=== PATIENT | female | born 1975 | race Caucasian/White ===

== ENCOUNTER 2023-09-22 19:30 | Emergency (ER) | payer BC, MEDICAID ==
[~2023-09-22] VITALS: Ht 167.6 cm; Wt 79.5 kg
[2023-09-22 19:33] VITALS: BP 143/92; PULSE 106; RESP 18; TEMP 98.5; O2SAT 97
[2023-09-22 20:04] LABS: BILIRUBIN,URINE NEGATIVE (Neg); CLARITY,URINE SLIGHTLY CLOUDY (Clear); COLOR,URINE YELLOW (Yellow); GLUCOSE, URINE NEGATIVE (Neg); KETONES,URINE TRACE mg/dl (Neg); LEUKOCYTE ESTERASE ,URINE NEGATIVE (Neg); NITRITES, URINE NEGATIVE (Neg); OCCULT BLOOD,URINE NEGATIVE (Neg); PH,URINE 6.5 (4.8-8.0); PROTEIN,URINE NEGATIVE (Neg)
[2023-09-22 20:13] LABS: UA COLLECTION TYPE CLN CATCH MIDSTREAM
[2023-09-22 20:14] LABS: SQUAMOUS EPITHELIAL CELL,UR MANY /LPF (FEW)
[2023-09-22 20:15] LABS: BACTERIA,URINE 2+ /HPF (Neg); RBC,URINE NONE SEEN /HPF (0-2); WBC,URINE 0-4 /HPF (0-4)
[2023-09-22 20:16] LABS: CAL OXALATE CRYSTALS FEW /HPF (NEGATIVE)
[2023-09-22] MEDS ORDERED: CEPH250T PO (20:42)
== END 2023-09-22 21:05 | disposition home or self-care (01) ==
LOC: ER 19:32
DX: N39.0 Urinary tract infection, site not specified (principal); F41.9 Anxiety disorder, unspecified; F32.A Depression, unspecified; Z88.8 Allergy status to other drugs, medicaments and biological substances; Z79.2 Long term (current) use of antibiotics
CPT/HCPCS: 81001; 99283

== ENCOUNTER 2025-01-09 06:13 | Emergency (ER) | payer BC ==
[~2025-01-09] VITALS: Ht 170.2 cm; Wt 80.1 kg
[2025-01-09 06:15] VITALS: TEMP 97.1
[2025-01-09 06:51] LABS: MEAN PLATELET VOLUME 8.1 FL (7.4-10.4); RED CELL DISTRIBUTION WIDTH 14.1 % (11.5-14.5)
[2025-01-09 07:07] LABS: CREATININE 1.05 MG/DL (0.40-0.90); TOTAL CARBON DIOXIDE 30.6 MMOL/L (24-32); eCRCL 64 ML/MIN; eGFR 56 ML/MIN
[2025-01-09 07:11] LABS: URINE HCG NEGATIVE (NEG)
[2025-01-09 07:13] LABS: LEUKOCYTE ESTERASE ,URINE NEGATIVE (Neg); NITRITES, URINE NEGATIVE (Neg); OCCULT BLOOD,URINE NEGATIVE (Neg)
[2025-01-09 07:16] LABS: UA COLLECTION TYPE CLN CATCH MIDSTREAM
--- NOTE | 2025-01-09 07:19 | Physician Documentation ---
History of Present Illness Chief Complaint: Abdominal Pain Stated Complaint: ABDOMINAL PAIN Time Seen by MD: 06:30 OK to notify your PCP?: Yes Primary Medical Doctor: MARIO Source: patient Mode of Arrival: POV Exam Limitations: no limitations HPI Chief Complaint: Abdominal pain Caveat: None Independent Historians: History of Present Illness: Patient is a 49-year-old woman who comes in complaining of lower suprapubic abdominal pain. Patient has had problems with the abdominal pain similar to this for three years at least. Patient states that her pain has gotten worse over the last three weeks. The pain has been constant, described as a dull ache. Pain is currently 4/10. Patient's pain was severe last night and kept her up from sleep. Patient took an ibuprofen earlier this morning prior to arrival which has helped. Patient has not had any nausea vomiting or diarrhea. Patient did see her primary care doctor one week ago when she was working her up for possible allergies. Patient had a endoscopy and colonoscopy at least three years ago. 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 Patient denies any blood in the urine or blood in the stool. No burning with urination. No fever. Patient denies any other a ssociated symptoms. Review of systems: All systems were reviewed and are negative except for what is indicated in the history of present illness. Past Medical History: None Past Surgical History: None Social History: No tobacco use, no alcohol use, no drug use Medications: Reviewed as documented Nursing Notes Allergies: Reviewed as documented in Nursing Notes Medication Reconciliation Allergies: Coded Allergies: nirmatrelvir (Verified Allergy, Unknown, 01/09/25) ritonavir (Verified Allergy, Unknown, 01/09/25) tetracycline (Verified Allergy, Unknown, HIVES, 01/09/25) Past Medical History Past Medical History: UTI, Anxiety, Depression Past Surgical History: no surgical history Alcohol Use: Occasionally Drug Use: none Lives with: Spouse Lives In: Home Occupation: unemployed Review of Systems All Other Systems at this time: Reviewed and Negative ROS Patient denies any other acute symptoms other than above. All other systems are negative Physical Exam Vital Signs: RN Vital Signs have been reviewed: Yes, Temperature: 97.1, Source: Temporal, Heart Rate: 88, Respiratory Rate: 12, BP: 117/80, Pulse Oximetry: 99, Weight: 80.100 Oxygen Flow Rate: 0 Pulse Oximetry Reflects: adequate oxygenation Physical Exam General Appearance: No distress HEENT: Normal OP, moist oral mucosa, PERRL, EOMI Neck: supple, normal ROM, trachea midline Pulmonary: No respiratory distress, CTA, BS equal Cardiac: RRR, no murmur, rub or gallop, GI: nondistended, soft, SUPRAPUBIC TENDERNESS, normal bowel sounds, no guarding, no rebound Extremities: normal ROM, no swelling, non-tender Skin: intact, dry, warm, no rashes Neuro: AAOx3, speech is clear, no focal motor weakness Psych: normal affect, good eye contact, no apparent hallucination, normal speech Progress Results/Orders Results/Orders Orders - JANET PEREZ MD Urinalysis, Cult If Indicated (01/09/25 06:23) Straight Cath For Urine Sample (01/09/25 06:23) Ct Abdomen Pelvis (01/09/25 06:43) Completed Orders - JANET PEREZ MD Hcg, Ur Ql (01/09/25 06:23) Cbc/Diff (01/09/25 06:23) BMP (01/09/25 06:23) Lipase (01/09/25 06:23) CMP (01/09/25 06:23) Vital Signs 01/09/25 01/09/25 01/09/25 06:15 06:56 07:00 Temp 97.1 Pulse 84 88 Resp 16 12 B/P (MAP) 116/77 117/80 (92) Pulse Ox 99 99 O2 Flow Rate 0 Laboratory Tests Test 01/09/25 06:37 01/09/25 06:55 White Blood Count 11.6 H Red Blood Count 5.05 Hemoglobin 13.7 Hematocrit 41.1 Mean Corpuscular Volume 81.4 Mean Corpuscular Hemoglobin 27.2 Mean Corpuscular Hemoglobin Concent 33.4 Red Cell Distribution Width 14.1 Platelet Count 336 Mean Platelet Volume 8.1 Neutrophils (%) (Auto) 61.0 Lymphocytes (%) (Auto) 25.5 Monocytes (%) (Auto) 6.5 Eosinophils (%) (Auto) 5.7 Basophils (%) (Auto) 1.3 H Neutrophils # (Auto) 7.0 Lymphocytes # (Auto) 2.9 Monocytes # (Auto) 0.7 Eosinophils # (Auto) 0.7 Basophils # (Auto) 0.2 CBC Comment Sodium Level 139 Potassium Level 3.6 Chloride Level 102 Carbon Dioxide Level 30.6 Anion Gap 6 L Blood Urea Nitrogen 14 Creatinine 1.05 H Estimated GFR/1.73 m2 56 BUN/Creatinine Ratio 13.3 Glucose Level 105 H Calcium Level 9.5 Total Bilirubin 0.5 Aspartate Amino Transf (AST/SGOT) 17 Alanine Aminotransferase (ALT/SGPT) 33 Alkaline Phosphatase 72 Total Protein 7.6 Albumin 3.6 Globulin 4.0 Albumin/Globulin Ratio 0.9 L Lipase 28 Chemistry Comments Urine HCG, Qualitative Negative Urine Comment Medical Decision Making Findings Differential diagnosis includes but is not limited to: Cancer, ovarian cyst, ovarian cancer, uterine fibroids, colon cancer, interstitial cystitis, urinary tract infection CT abdomen and pelvis with IV contrast, indication: Abdominal pain Impression: 1. 4 mm noncalcified pulmonary nodule in the lingula. Recommend outpatient CT follow-up according to Fleischner society guidelines. 2. Cholelithiasis. 3. Hepatomegaly and possible hepatic steatosis. 4. Trace free fluid in the pelvis may be physiologic. 5. 8.9 cm cystic mass in the central pelvis, likely ovarian in nature. Recommend follow-up outpatient pelvic ultrasound and gynecology consultation if this is not already known. 6. No evidence of bowel obstruction, acute appendicitis, or other acute process in the abdomen or pelvis. Pelvic ultrasound, indication: Pelvic pain Impression: 1. Normal sonographic appearance of the uterus and left ovary. 2. 8.3 cm right ovarian simple cyst. Recommend follow-up outpatient nonemergent pelvic ultrasound examination in 6 weeks to re-evaluate for stability versus resolution of this lesion. As previously recommended on CT scan of the pelvis from earlier same day, no additional imaging of this lesion should be performed on an emergent basis. Laboratory data independent interpretation: CBC: Unremarkable, mild leukocytosis of 11.6 CMP: Unremarkable Urinalysis: Unremarkable, contaminated specimen, urine test negative Emergency department course/medical decision-making: Patient presents with chronic lower abdominal pain. Patient's CT scan shows a large central cyst that is likely ovarian nature. Patient was offered pain medications but she refuses anything additional. Patient is on Suboxone. Ultrasound of the pelvis shows a large cyst. Blood flow to the ovaries is in tact. Patient is stable for discharge. RADIOLOGIST SUGGESTED THAT IS ADDITIONAL IMAGING PERFORMED TODAY AFTER THE CT SCAN WAS NOT NEEDED. I DISAGREED. PATIENT'S PAIN IS SEVERE AND ACUTELY WORSE LAST NIGHT. BLOOD FLOW TO THE OVARY COULD NOT BE VERIFIED ON CT SCAN. IN ADDITION THE RADIOLOGIST COULD NOT CONFIRM THE ORIGIN OF THE CYST AND HE ALSO CALLED A IT MASS. AWILDA ARELLANO IS HELPFUL FOR DELINEATION OF THESE QUESTIONS. PATIENT ALSO HAD ALREADY SEEN HER DAIRY CHEMIST AND WILL BE REFERRED BACK TO HER FOR INTERVENTION AND CYSTECTOMY. Patient also has an incidental pulmonary nodule in the lingula of the left lung. Patient will follow up with her primary care doctor to monitor this. Test results, treatment plan and follow up plan and all the above was discussed with the patient. Patient is stable for discharge. Departure Time of Disposition: 09:50 Disposition: 01 HOME / SELF CARE / HOMELESS Impression: Primary Impression: Chronic pelvic pain in female Additional Impressions: Ovarian cyst Qualified Codes: N83.209 - Unspecified ovarian cyst, unspecified side Incidental pulmonary nodule, > 3mm and < 8mm Discharge Instructions: Ovarian Cyst, [id number], Pulmonary Nodule, [id number] Additional Instructions: YOU MUST FOLLOW UP WITH YOUR DAIRY CHEMIST. HE WILL LIKELY NEED SURGICAL INTERVENTION FOR REMOVAL OF THE CYST AND/OR OVARY. RETURN TO THE ER IF YOUR SYMPTOMS WORSEN. TAKE TYLENOL AND MOTRIN FOR PAIN. ALSO NEED TO FOLLOW UP WITH YOUR PRIMARY CARE DOCTOR FOR AN INCIDENTAL PULMONARY NODULE MEASURING 4 MM IN THE LINGULA OF THE LEFT LUNG. Education Educated: Patient Educated regarding: diagnosis, treatment, need for follow up Signature Scribe Signature: No scribe Attestation: No scribe JANET PEREZ MD Jan 09, 2025 07:19
[2025-01-09 07:22] LABS: CAL OXALATE CRYSTALS 1+ /HPF (NEGATIVE); HYALINE CASTS 0-3 /LPF (NEGATIVE); MUCUS STRANDS MANY /LPF (Neg); SQUAMOUS EPITHELIAL CELL,UR MANY /LPF (FEW)
[2025-01-09] MEDS ORDERED: iohexol 300mg/ml 100ml inj. ONE (07:28)
--- NOTE | 2025-01-09 08:00 | RADIOLOGY REPORT ---
EXAM: CT CT ABDOMEN PELVIS W/ IV CONTRAST HISTORY: Abdominal Pain COMPARISON: None TECHNIQUE: Helical CT images of the abdomen and pelvis were performed with 100 mL Omnipaque 300 IV c ontrast. Sagittal and coronal reformatted images were obtained. This CT exam was performed using 1 or more of the following dose reduction techniques: Automated exposure control, adjustment of the mA an d/or kv according to patient size, or the use of iterative reconstruction techniques. Radiation Dose Information: CT Dose: CTDI volume is 20.21 mGy. Dose-length product is 994.95 mGy*cm FINDINGS: CT abdomen: There is a 4 mm noncalcified pulmonary nodule in the lingula on the most cephalad image ( image 1, series 2). There may be a trace left pleural effusion versus artifactual appearance. The hea rt is not enlarged. The liver measures 24 cm longitudinal and may be diffusely fatty density. There is at least 1 gallstone in the gallbladder lumen. The spleen, pancreas, kidneys, and adrenal glands a re unremarkable. No abdominal aortic aneurysm or dissection. CT pelvis: No abnormal bowel dilatation or free air. There is trace free fluid in the pelvis. There i s fecal retention in the colon. There is a cystic mass of the central pelvis, with mild mass effect o n the uterus measuring 8.9 cm transverse X 8.5 cm AP x 7.8 cm longitudinal (image 87, series 2). The appendix is not dilated. The urinary bladder is decompressed. 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 There is mild lumbar degenerative disc disease. There is thoracolumbar dextroscoliosis. IMPRESSION: 1. 4 mm noncalcified pulmonary nodule in the lingula. Recommend outpatient CT follow-up according to Fleischner society guidelines. 2. Cholelithiasis. 3. Hepatomegaly and possible hepatic steatosis. 4. Trace free fluid in the pelvis may be physiologic. 5. 8.9 cm cystic mass in the central pelvis, likely ovarian in nature. Recommend follow-up outpatien t pelvic ultrasound and gynecology consultation if this is not already known. 6. No evidence of bowel obstruction, acute appendicitis, or other acute process in the abdomen or pel vis.
[2025-01-09 08:29] VITALS: BP 100/77; PULSE 77; RESP 20; O2SAT 99
--- NOTE | 2025-01-09 10:26 | RADIOLOGY REPORT ---
EXAM: US ULTRASOUND PELVIS W/ORWO DPLX HISTORY: pelvic mass, likely ovarian COMPARISON: None TECHNIQUE: Transabdominal pelvic ultrasound examination was performed. FINDINGS: The uterus measures 6.2 x 2.7 x 4.7 cm. The endometrium measures 8.3 mm in thickness. The right o vary measures 9.5 x 9.4 x 9.0 cm and contains an 8.3 cm simple cyst. The left ovary measures 3.3 x 1 .7 x 1.7 cm and is normal in appearance. Both ovaries demonstrate normal color Doppler blood flow. No free fluid is identified in the pelvis. IMPRESSION: 1. Normal sonographic appearance of the uterus and left ovary. 2. 8.3 cm right ovarian simple cyst. Recommend follow-up outpatient nonemergent pelvic ultrasound exa mination in 6 weeks to re-evaluate for stability versus resolution of this lesion. As previously osmany mmended on CT scan of the pelvis from earlier same day, no additional imaging of this lesion should b e performed on an emergent basis.
== END 2025-01-09 10:08 | disposition home or self-care (01) ==
LOC: ER 06:14
DX: N83.201 Unspecified ovarian cyst, right side (principal); R91.1 Solitary pulmonary nodule; G89.29 Other chronic pain; R10.2 Pelvic and perineal pain; F41.9 Anxiety disorder, unspecified; F32.A Depression, unspecified; Z72.89 Other problems related to lifestyle; Z56.0 Unemployment, unspecified; Z88.1 Allergy status to other antibiotic agents; Z88.8 Allergy status to other drugs, medicaments and biological substances
CPT/HCPCS: 36415; 74177; 76856; 80053; 81001; 81025; 83690; 85025; 93976; 99285; Q9967